=== PATIENT | female | born 1980 | race Caucasian/White ===

== ENCOUNTER 2020-04-02 14:58 | Emergency (ER) | payer OTHER ==
[~2020-04-02] VITALS: Ht 170.2 cm; Wt 72.6 kg
[~2020-04-02 14:58] MED LIST: ACCUNEB SO1.25 MG/1; ALBUTEROL2.5 MG/31 INH; ALBUTEROL2.5 MG/32 IH; AMOXICILLIN875 MG PO; CLARITIN-D 24 H1 TA1; DIPHENHIST50 MG PO; MEDROLDOSEPACK PO; NOHOMEMEDICATIONS; PREDNISONE 10 M10 M1 PO; PREDNISONE 20 M20 M1 PO; PREDNISONE 20 M20 MG PO; PROAIR HFA8.5 GM IH; PROAIR HFA8.5 GM INH; PROVENTIL HFA6.7 G1 INH; SINGULAIR 10 MG10 M1; VENTOLIN17 GM; ZPAK PO
[2020-04-02 15:09] VITALS: BP 134/82
== END 2020-04-02 16:12 | disposition home or self-care (01) ==
LOC: M.ERS 14:58
DX: B34.9 Viral infection, unspecified (principal); Z20.828 Contact with and (suspected) exposure to other viral communicable diseases; J45.909 Unspecified asthma, uncomplicated; F17.210 Nicotine dependence, cigarettes, uncomplicated; Z98.890 Other specified postprocedural states; Z98.51 Tubal ligation status; Z90.710 Acquired absence of both cervix and uterus

== ENCOUNTER 2020-04-07 16:26 | Emergency (ER) | payer OTHER ==
[~2020-04-07] VITALS: Ht 170.2 cm; Wt 72.6 kg
== END 2020-04-07 17:40 | disposition home or self-care (01) ==
LOC: M.ERS 16:26
DX: Z20.828 Contact with and (suspected) exposure to other viral communicable diseases (principal); J45.909 Unspecified asthma, uncomplicated; F17.210 Nicotine dependence, cigarettes, uncomplicated; Z98.890 Other specified postprocedural states; Z98.51 Tubal ligation status; Z90.710 Acquired absence of both cervix and uterus